=== PATIENT | female | born 1980 | race Caucasian/White ===

== ENCOUNTER 2020-02-21 15:21 | Emergency (ER) | payer OTHER ==
[~2020-02-21] VITALS: Ht 165.1 cm; Wt 52.2 kg
[2020-02-21] MEDS ORDERED: ALBUTEROL FS 2.5 MG/3 ML VIAL.NEB NEB ONE (15:30)
[2020-02-21] MEDS ORDERED: IPRATROPIUM NEB FS 0.5 MG/2.5 ML AMPUL.NEB NEB ONE (15:30)
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
--- NOTE | 2020-02-21 15:42 | NUR ---
rt called for breathing tx
[2020-02-21] MEDS ORDERED: ALBUTEROL FS 2.5 MG/3 ML VIAL.NEB ONE (15:51)
[2020-02-21] MEDS ORDERED: IPRATROPIUM NEB FS 0.5 MG/2.5 ML AMPUL.NEB ONE (15:51)
[2020-02-21 16:29] VITALS: BP 127/86
--- NOTE | 2020-02-21 16:29 | NUR ---
Patient discharged to home in custody in stable condition. Written and verbal after care instructions given. Patient verbalizes understanding of instruction.
== END 2020-02-21 16:39 ==
LOC: ER 15:29
DX: J45.909 Unspecified asthma, uncomplicated (principal); R06.02 Shortness of breath; R00.0 Tachycardia, unspecified
CPT/HCPCS: 71045-TC